=== PATIENT | male | born 1970 | race African-American/Black ===

== ENCOUNTER 2018-04-05 17:09 | Inpatient (IN) ==
[2018-04-05] MEDS ORDERED: ONDANSETRON 4 MG/2 ML VIAL IV STA (17:30)
[2018-04-05] MEDS ORDERED: PANTOPRAZOLE 40 MG VIAL IV STA (17:30)
[2018-04-05] MEDS ORDERED: METOCLOPRAMIDE 10 MG/2 ML VIAL IV STA (17:30)
[2018-04-05] MEDS ORDERED: ORPHENADRINE 60 MG/2 ML VIAL IV STA (17:30)
[2018-04-05 18:20] LABS: Basophils # 0.1 10*3/uL (0.0-0.2); Basophils % 1.5 % (0.0-0.8); Eosinophils # 0.3 10*3/uL (0.0-0.87); Eosinophils % 5.7 % (0.00-10.9); Hematocrit 31.8 VOL% (42.0-52.0); Hemoglobin 10.9 GM/DL (14.0-18.0); Immature Granulocytes % 0.4 %; Immature Granulocytes Absolute 0.02 #; Lymphocytes # 2.1 10*3/uL (1.4-4.0); Lymphocytes % 45.1 % (21.2-54.2); Mean Corpuscular HGB Conc 34.3 GM/DL (32-36); Mean Corpuscular Hemoglobin 32 PG (27-34); Mean Corpuscular Volume 91.9 FL (87-102); Mean Platelet Volume 10.2 FL (9.6-12.0); Monocytes # 0.7 10*3/uL (0.11-0.8); Monocytes % 14.2 % (1.7-12.7); Neutrophils # 1.5 10*3/uL (1.4-7.4); Neutrophils % 33.1 % (38.7-73.9); Platelet Count 135 T/CUMM (130-400); Red Blood Count 3.46 MC/CUMM (3.8-5.5); Red Cell Distribution Width 14.8 % (9.3-17.3); White Blood Count 4.6 T/CUMM (4-12)
[2018-04-05 18:21] LABS: Apearance,Urine CLEAR (Clear); Bilirubin,Urine Negative (Negative); Blood, Urine Negative (Negative); Glucose,Urine (UA) Negative (Negative); Ketones,Urine 20 mg/dL (Negative); Nitrite,Urine Negative (Negative); Protein,Urine Negative; RBC,Urine <1 /HPF (0-4); Urine Color Yellow (Yellow); Urine Specific Gravity 1.003 (1.001-1.035); Urine Urobilinogen < 2.0 EU/DL (0.2-1.0); WBC,Urine 1 /HPF (0-6)
[2018-04-05 18:37] LABS: Alanine Aminotransferase 35 U/L (16-61); Albumin 3.8 G/DL (3.4-5.0); Alkaline Phosphatase 72 U/L (45-117); Amylase 106 U/L (25-115); Aspartate Amino Transferase 80 U/L (0-37); Blood Urea Nitrogen 4 MG/DL (7-18); Calcium 8.8 MG/DL (8.5-10.1); Glucose 78 MG/DL (74-106); Osmolality,Calculated 268.8 MOS/KG (273-304); Potassium 2.6 MMOL/L (3.5-5.1); Sodium 137 MMOL/L (136-145); Total Protein 7.3 G/DL (6.4-8.3); Troponin I < 0.015 NG/ML (0.00-0.045)
[2018-04-05 18:48] LABS: Band Neutrophils 6 % (0-10); Eosinophils 10 % (0-10); Lymphocytes 40 % (20-55); Platelet Estimate Adequate; Segmented Neutrophils 36 % (50-85); Total Cells Counted 100
[2018-04-05 18:49] LABS: Anisocytosis 1+; Macrocytosis Slight; Smudge Cells Few; Target Cells Few
[2018-04-05] MEDS ORDERED: POTASSIUM BICARB EFFERVESCENT 25 MEQ TABLET PO ONE (19:24)
[2018-04-05] MEDS ORDERED: LEVOFLOXACIN INJ 750 MG in PREMIX 1 EACH IV STA (20:28)
[2018-04-05] MEDS ORDERED: ALBUTEROL/IPRATROPIUM 3 ML NEB RESP TX STA (20:28)
[2018-04-05] MEDS ORDERED: ONDANSETRON 4 MG/2 ML VIAL IV PRN (21:18)
[2018-04-05] MEDS ORDERED: MORPHINE 4 MG/1 ML VIAL IV PRN (21:25)
[2018-04-05 22:06] LABS: Risk Ratio 4.02; VLDL CHOLESTEROL 103.8 MG/DL
[2018-04-05] MEDS ORDERED: ALBUTEROL 2.5 MG/3 ML NEB RESP TX PRN (23:07)
[2018-04-05] MEDS: SODIUM CHLORIDE 0.45% 1,000 ML IV SCH (23:44)
[2018-04-05] MEDS: POTASSIUM CHLORIDE RIDER 10 MEQ in PREMIX 1 EACH IV SCH (23:46)
[2018-04-05] MEDS: ENOXAPARIN 40 MG/0.4 ML SYRINGE SUBCUT SCH (23:46)
[2018-04-05 23:50] LABS: Troponin I < 0.015 NG/ML (0.00-0.045)
[2018-04-06] MEDS: POTASSIUM CHLORIDE RIDER 10 MEQ in PREMIX 1 EACH IV SCH ×3 (00:48→04:14)
[2018-04-06 02:11] LABS: Apearance,Urine CLEAR (Clear); Bilirubin,Urine Negative (Negative); Blood, Urine Negative (Negative); Glucose,Urine (UA) Negative (Negative); Ketones,Urine 20 mg/dL (Negative); Mucus,Urine Occasional /LPF (Occasional); Nitrite,Urine Negative (Negative); Protein,Urine Negative; Urine Color Yellow (Yellow); Urine Specific Gravity 1.011 (1.001-1.035); WBC,Urine <1 /HPF (0-6)
[2018-04-06] MEDS ORDERED: POTASSIUM CHLORIDE RIDER 10 MEQ in PREMIX 1 EACH IV SCH (03:00)
[2018-04-06 03:18] LABS: Barbiturates Screen,Urine Negative (Negative); Benzodiazepines Screen,Urine Negative (Negative); Cannabinoid Screen,Urine Negative (Negative); Opiate Screen,Urine Positive (Negative); Phencyclidine Screen,Urine Negative (Negative)
[2018-04-06 05:29] LABS: Basophils # 0.1 10*3/uL (0.0-0.2); Basophils % 1.9 % (0.0-0.8); Eosinophils # 0.4 10*3/uL (0.0-0.87); Eosinophils % 15.6 % (0.00-10.9); Hematocrit 28.6 VOL% (42.0-52.0); Immature Granulocytes % 0.7 %; Immature Granulocytes Absolute 0.02 #; Lymphocytes # 1.4 10*3/uL (1.4-4.0); Lymphocytes % 51.3 % (21.2-54.2); Mean Corpuscular Hemoglobin 32 PG (27-34); Mean Corpuscular Volume 90.5 FL (87-102); Mean Platelet Volume 10.2 FL (9.6-12.0); Monocytes # 0.4 10*3/uL (0.11-0.8); Monocytes % 13.4 % (1.7-12.7); Neutrophils # 0.5 10*3/uL (1.4-7.4); Neutrophils % 17.1 % (38.7-73.9); Platelet Count 123 T/CUMM (130-400); Red Blood Count 3.16 MC/CUMM (3.8-5.5); Red Cell Distribution Width 14.6 % (9.3-17.3); White Blood Count 2.7 T/CUMM (4-12)
[2018-04-06 05:58] LABS: Troponin I < 0.015 NG/ML (0.00-0.045)
[2018-04-06 05:59] LABS: Albumin 3.4 G/DL (3.4-5.0); Bilirubin,Total 1.1 MG/DL (0.2-1.0); Calcium 8.5 MG/DL (8.5-10.1); Osmolality,Calculated 272.5 MOS/KG (273-304); Potassium 3.6 MMOL/L (3.5-5.1); Total Protein 6.5 G/DL (6.4-8.3)
[2018-04-06 07:12] LABS: Eosinophils 15 % (0-10); Lymphocytes 53 % (20-55); Platelet Estimate Decreased; Segmented Neutrophils 20 % (50-85); Total Cells Counted 100
[2018-04-06] MEDS: SODIUM CHLORIDE 0.45% 1,000 ML IV SCH ×3 (07:35→23:14)
[2018-04-06] MEDS: CLOPIDOGREL 75 MG TABLET PO SCH (09:41)
[2018-04-06] MEDS: PANTOPRAZOLE 40 MG TABLET PO SCH (09:41)
[2018-04-06] MEDS: METOPROLOL TARTRATE 25 MG TABLET PO SCH ×2 (09:41→23:04)
[2018-04-06 12:44] LABS: Troponin I < 0.015 NG/ML (0.00-0.045)
[2018-04-06] MEDS: NORVIR 100 MG PO SCH (13:58)
[2018-04-06] MEDS ORDERED: LEVOFLOXACIN INJ 500 MG in PREMIX 1 EACH IV SCH (21:00)
[2018-04-06] MEDS: ENOXAPARIN 40 MG/0.4 ML SYRINGE SUBCUT SCH (23:04)
[2018-04-07 04:54] LABS: Basophils % 1.4 % (0.0-0.8); Eosinophils # 0.4 10*3/uL (0.0-0.87); Eosinophils % 15.3 % (0.00-10.9); Hematocrit 27.8 VOL% (42.0-52.0); Hemoglobin 9.6 GM/DL (14.0-18.0); Immature Granulocytes % 0.7 %; Immature Granulocytes Absolute 0.02 #; Lymphocytes # 1.3 10*3/uL (1.4-4.0); Lymphocytes % 44.4 % (21.2-54.2); Mean Corpuscular HGB Conc 34.5 GM/DL (32-36); Mean Corpuscular Hemoglobin 32 PG (27-34); Mean Corpuscular Volume 91.4 FL (87-102); Mean Platelet Volume 10.6 FL (9.6-12.0); Monocytes # 0.4 10*3/uL (0.11-0.8); Monocytes % 13.5 % (1.7-12.7); Neutrophils # 0.7 10*3/uL (1.4-7.4); Neutrophils % 24.7 % (38.7-73.9); Platelet Count 109 T/CUMM (130-400); Red Blood Count 3.04 MC/CUMM (3.8-5.5); Red Cell Distribution Width 14.6 % (9.3-17.3); White Blood Count 2.9 T/CUMM (4-12)
[2018-04-07 05:40] LABS: Calcium 8.1 MG/DL (8.5-10.1); Osmolality,Calculated 268.8 MOS/KG (273-304); Potassium 2.9 MMOL/L (3.5-5.1)
[2018-04-07 05:54] LABS: Eosinophils 9 % (0-10); Lymphocytes 59 % (20-55); Segmented Neutrophils 25 % (50-85); Total Cells Counted 100
[2018-04-07 05:55] LABS: Atypical Lymphocytes Few; Hypochromasia 1+; Microcytosis Slight; Target Cells Slight
[2018-04-07 05:56] LABS: Platelet Estimate Decreased
[2018-04-07] MEDS ORDERED: SODIUM CHLOR 0.9% KCL 40 MEQ 40 MEQ/1,000 ML BAG IV SCH (07:30)
[2018-04-07] MEDS ORDERED: POTASSIUM CHLORIDE 20 MEQ TABLET PO ONE ×2 (07:30→12:30)
[2018-04-07] MEDS ORDERED: POTASSIUM CHLORIDE INJ 40 MEQ in DEXTROSE 5% LACTATED RINGERS 1,000 ML IV SCH (08:00)
[2018-04-07] MEDS: POTASSIUM CHLORIDE INJ 40 MEQ in SODIUM CHLORIDE 0.45% 1,000 ML IV SCH ×2 (08:45→22:25)
[2018-04-07] MEDS: PANTOPRAZOLE 40 MG TABLET PO SCH (08:50)
[2018-04-07] MEDS: CLOPIDOGREL 75 MG TABLET PO SCH (08:50)
[2018-04-07] MEDS: METOPROLOL TARTRATE 25 MG TABLET PO SCH ×2 (08:50→22:22)
[2018-04-07] MEDS: NORVIR 100 MG PO SCH (08:51)
[2018-04-07] MEDS ORDERED: MAGNESIUM SULF RIDER 2 GM in PREMIX 1 EACH IV PRN (08:55)
[2018-04-07] MEDS ORDERED: MAGNESIUM SULF RIDER 4 GM in PREMIX 1 EACH IV PRN (08:55)
[2018-04-07 17:46] LABS: % CD4 (T Cells) 18 % (32-64); % CD8 (T Cells) 60 % (13-40); 4/8 Ratio 0.3 (>=0.9)
[2018-04-07] MEDS: ENOXAPARIN 40 MG/0.4 ML SYRINGE SUBCUT SCH (22:22)
[2018-04-08 05:04] LABS: Basophils % 0.7 % (0.0-0.8); Eosinophils # 0.5 10*3/uL (0.0-0.87); Eosinophils % 15.9 % (0.00-10.9); Hematocrit 26.7 VOL% (42.0-52.0); Hemoglobin 9.1 GM/DL (14.0-18.0); Immature Granulocytes % 0.7 %; Immature Granulocytes Absolute 0.02 #; Lymphocytes # 1.2 10*3/uL (1.4-4.0); Lymphocytes % 42.4 % (21.2-54.2); Mean Corpuscular HGB Conc 34.1 GM/DL (32-36); Mean Corpuscular Hemoglobin 32 PG (27-34); Mean Corpuscular Volume 92.7 FL (87-102); Mean Platelet Volume 11.1 FL (9.6-12.0); Monocytes # 0.3 10*3/uL (0.11-0.8); Monocytes % 10.2 % (1.7-12.7); Neutrophils # 0.9 10*3/uL (1.4-7.4); Neutrophils % 30.1 % (38.7-73.9); Platelet Count 111 T/CUMM (130-400); Red Blood Count 2.88 MC/CUMM (3.8-5.5); Red Cell Distribution Width 14.7 % (9.3-17.3); White Blood Count 2.8 T/CUMM (4-12)
[2018-04-08 05:32] LABS: Calcium 8.4 MG/DL (8.5-10.1); Osmolality,Calculated 272.5 MOS/KG (273-304); Potassium 3.6 MMOL/L (3.5-5.1)
[2018-04-08 07:38] LABS: Band Neutrophils 1 % (0-10); Eosinophils 18 % (0-10); Lymphocytes 43 % (20-55); Nucleated Red Blood Cells 1 (0-5); Segmented Neutrophils 33 % (50-85); Total Cells Counted 100
[2018-04-08 07:39] LABS: Hypochromasia 1+; Microcytosis 1+; Target Cells Slight
[2018-04-08 07:40] LABS: Platelet Estimate Decreased
[2018-04-08] MEDS: CLOPIDOGREL 75 MG TABLET PO SCH (10:10)
[2018-04-08] MEDS: PANTOPRAZOLE 40 MG TABLET PO SCH (10:10)
[2018-04-08] MEDS: METOPROLOL TARTRATE 25 MG TABLET PO SCH (10:10)
[2018-04-08] MEDS: NORVIR 100 MG PO SCH (10:10)
[2018-04-08 14:24] VITALS: BP 118/92
[2018-04-09 12:01] LABS: TB2 Ag Minus Result 0 IU/mL
== END 2018-04-08 12:45 | disposition home or self-care (01) | DRG 439 ==
LOC: EDUNIT# → EDBD → N.ED 17:09 → N.EDINP 21:18 → SUATTDRO 21:18 → N.2E 22:54
PROVIDERS: ADMIT Internal Medicine; ATTEND Internal Medicine

== ENCOUNTER 2018-05-12 20:42 | Inpatient (IN) ==
[2018-05-12] MEDS ORDERED: SODIUM CHLORIDE 0.9% 1,000 ML IV STA (22:01)
[2018-05-12] MEDS ORDERED: MORPHINE 4 MG/1 ML VIAL IV STA (22:02)
[2018-05-12] MEDS ORDERED: ONDANSETRON 4 MG/2 ML VIAL IV STA (22:02)
[2018-05-12 22:19] LABS: Basophils % 0.1 % (0.0-0.8); Eosinophils % 0.1 % (0.00-10.9); Hematocrit 35.2 VOL% (42.0-52.0); Hemoglobin 11.2 GM/DL (14.0-18.0); Immature Granulocytes % 0.9 %; Immature Granulocytes Absolute 0.09 #; Lymphocytes # 0.6 10*3/uL (1.4-4.0); Lymphocytes % 6.1 % (21.2-54.2); Mean Corpuscular HGB Conc 31.8 GM/DL (32-36); Mean Corpuscular Hemoglobin 31 PG (27-34); Mean Corpuscular Volume 97.2 FL (87-102); Mean Platelet Volume 10.4 FL (9.6-12.0); Monocytes # 0.4 10*3/uL (0.11-0.8); Monocytes % 4.2 % (1.7-12.7); NRBC # 0.03 10*3/uL; Neutrophils # 8.8 10*3/uL (1.4-7.4); Neutrophils % 88.6 % (38.7-73.9); Platelet Count 161 T/CUMM (130-400); Red Blood Count 3.62 MC/CUMM (3.8-5.5); Red Cell Distribution Width 14.8 % (9.3-17.3); White Blood Count 9.9 T/CUMM (4-12)
[2018-05-12 22:27] LABS: Bilirubin,Total 0.8 MG/DL (0.2-1.0); Calcium 7.6 MG/DL (8.5-10.1); Osmolality,Calculated 263.4 MOS/KG (273-304); Potassium 5.1 MMOL/L (3.5-5.1); Total Protein 7.6 G/DL (6.4-8.3)
[2018-05-12 22:38] LABS: Lactic Acid 8.9 MMOL/L (0.4-2.0)
[2018-05-13] MEDS ORDERED: ONDANSETRON 4 MG/2 ML VIAL IV PRN (04:38)
[2018-05-13] MEDS ORDERED: LEVOFLOXACIN INJ 750 MG in PREMIX 1 EACH IV SCH (05:00)
[2018-05-13] MEDS ORDERED: LORazepam 2 MG/1 ML VIAL IV PRN (05:03)
[2018-05-13] MEDS ORDERED: LEVALBUTEROL 1.25 MG/3 ML NEB RESP TX PRN (05:07)
[2018-05-13] MEDS ORDERED: THIAMINE INJ 100 MG, FOLIC ACID INJ 1 MG, MULTIVITAMIN INJ 10 ML in SODIUM CHLORIDE 0.9... IV ONE (05:15)
[2018-05-13] MEDS: AZTREONAM 2,000 MG in SYRINGE 1 EACH IV SCH ×4 (05:25→23:25)
[2018-05-13 07:56] LABS: INR 1.1; PT Patient Result 11.4 SECS; Partial Thromboplastin Time 24.7 SECS (0-40)
[2018-05-13] MEDS ORDERED: VANCOMYCIN INJ 1,000 MG in SODIUM CHLORIDE 0.9% 250 ML IV ONE (07:58)
[2018-05-13 08:02] LABS: Eosinophils % 0.1 % (0.00-10.9); Hemoglobin 9.5 GM/DL (14.0-18.0); Immature Granulocytes % 0.8 %; Immature Granulocytes Absolute 0.06 #; Lymphocytes # 0.5 10*3/uL (1.4-4.0); Lymphocytes % 6.7 % (21.2-54.2); Mean Corpuscular HGB Conc 33.9 GM/DL (32-36); Mean Corpuscular Hemoglobin 31 PG (27-34); Mean Corpuscular Volume 91.2 FL (87-102); Mean Platelet Volume 10.1 FL (9.6-12.0); Monocytes # 0.6 10*3/uL (0.11-0.8); Monocytes % 8.1 % (1.7-12.7); Neutrophils # 6.2 10*3/uL (1.4-7.4); Neutrophils % 84.3 % (38.7-73.9); Platelet Count 120 T/CUMM (130-400); Red Blood Count 3.07 MC/CUMM (3.8-5.5); Red Cell Distribution Width 14.4 % (9.3-17.3); White Blood Count 7.3 T/CUMM (4-12)
[2018-05-13] MEDS: LEVALBUTEROL 1.25 MG/3 ML NEB RESP TX SCH ×3 (08:05→19:45)
[2018-05-13] MEDS: LORazepam 2 MG/1 ML VIAL IV SCH ×5 (08:14→23:51)
[2018-05-13 08:31] LABS: Albumin 3.6 G/DL (3.4-5.0); Bilirubin,Total 0.7 MG/DL (0.2-1.0); Osmolality,Calculated 260.9 MOS/KG (273-304); Potassium 4.3 MMOL/L (3.5-5.1); Total Protein 6.8 G/DL (6.4-8.3)
[2018-05-13] MEDS ORDERED: INFLUENZA VIRUS VACCINE 0.5 ML SYRINGE IM ONE (09:00)
[2018-05-13 11:49] LABS: Lactic Acid 2.2 MMOL/L (0.4-2.0)
[2018-05-13 11:49] LABS: Hepatitis A Ab IgM Quant 0.15 Index; Hepatitis A Ab IgM Result Negative (Negative); Hepatitis B Core IgM Quant < 0.05 Index; Hepatitis B Core IgM Result Negative (Negative); Hepatitis B Surface Ag Quant < 0.10 Index; Hepatitis B Surface Ag Result Negative (Negative); Hepatitis C Virus Ab Result Negative (Negative)
[2018-05-13] MEDS ORDERED: VANCOMYCIN INJ 1,000 MG in SODIUM CHLORIDE 0.9% 250 ML IV SCH (15:30)
[2018-05-13 16:00] LABS: Apearance,Urine CLEAR (Clear); Bilirubin,Urine Negative (Negative); Blood, Urine Small mg/dL (Negative); Glucose,Urine (UA) Negative (Negative); Ketones,Urine 5 mg/dL (Negative); Nitrite,Urine Negative (Negative); Protein,Urine Negative; Urine Color Straw (Yellow); Urine Specific Gravity 1.004 (1.001-1.035); Urine Urobilinogen < 2.0 EU/DL (0.2-1.0); WBC,Urine <1 /HPF (0-6)
[2018-05-13] MEDS: SODIUM CHLORIDE 0.9% 1,000 ML IV SCH (19:05)
[2018-05-14] MEDS: LEVALBUTEROL 1.25 MG/3 ML NEB RESP TX SCH ×3 (01:27→13:54)
[2018-05-14] MEDS: LORazepam 2 MG/1 ML VIAL IV SCH ×4 (03:21→15:15)
[2018-05-14] MEDS: SODIUM CHLORIDE 0.9% 1,000 ML IV SCH ×2 (03:21→15:14)
[2018-05-14] MEDS: AZTREONAM 2,000 MG in SYRINGE 1 EACH IV SCH ×2 (06:30→11:07)
[2018-05-14 08:09] VITALS: BP 114/79
[2018-05-14 08:40] LABS: Basophils % 0.5 % (0.0-0.8); Eosinophils % 0.7 % (0.00-10.9); Hematocrit 27.5 VOL% (42.0-52.0); Hemoglobin 9.3 GM/DL (14.0-18.0); Immature Granulocytes % 0.7 %; Immature Granulocytes Absolute 0.03 #; Lymphocytes # 0.9 10*3/uL (1.4-4.0); Lymphocytes % 22.3 % (21.2-54.2); Mean Corpuscular HGB Conc 33.8 GM/DL (32-36); Mean Corpuscular Hemoglobin 31 PG (27-34); Mean Corpuscular Volume 90.5 FL (87-102); Mean Platelet Volume 10.7 FL (9.6-12.0); Monocytes # 0.5 10*3/uL (0.11-0.8); Monocytes % 11.5 % (1.7-12.7); Neutrophils # 2.7 10*3/uL (1.4-7.4); Neutrophils % 64.3 % (38.7-73.9); Platelet Count 108 T/CUMM (130-400); Red Blood Count 3.04 MC/CUMM (3.8-5.5); Red Cell Distribution Width 14.8 % (9.3-17.3); White Blood Count 4.2 T/CUMM (4-12)
[2018-05-14 09:07] LABS: Albumin 3.1 G/DL (3.4-5.0); Bilirubin,Total 0.7 MG/DL (0.2-1.0); Calcium 8.4 MG/DL (8.5-10.1); Osmolality,Calculated 276.4 MOS/KG (273-304); Potassium 3.3 MMOL/L (3.5-5.1); Risk Ratio 3.15; Total Protein 6.2 G/DL (6.4-8.3); VLDL CHOLESTEROL 43.6 MG/DL
[2018-05-14] MEDS ORDERED: MAGNESIUM SULF RIDER 4 GM in PREMIX 1 EACH IV ONE ×2 (10:41→11:00)
[2018-05-14] MEDS ORDERED: POTASSIUM CHLORIDE 20 MEQ TABLET PO ONE (10:42)
[2018-05-14] MEDS ORDERED: LEVOFLOXACIN INJ 750 MG in PREMIX 1 EACH IV SCH (11:00)
[2018-05-14] MEDS ORDERED: METOPROLOL TARTRATE 25 MG TABLET PO SCH (21:00)
[2018-05-15] MEDS ORDERED: DARUNAVIR ETHANOLATE 800 MG PO SCH ×2 (08:00→09:00)
[2018-05-15] MEDS ORDERED: NON-FORMULARY MEDICATION (Ritonavir [Norvir] 100 MG) PO SCH ×2 (08:00→09:00)
[2018-05-15] MEDS ORDERED: CLOPIDOGREL 75 MG TABLET PO SCH (09:00)
[2018-05-15] MEDS ORDERED: NON-FORMULARY MEDICATION (Dolutegravir Sodium [Tivicay] 50 MG) PO SCH (09:00)
[2018-05-15 20:06] LABS: % CD4 (T Cells) 24 % (32-64); % CD8 (T Cells) 62 % (13-40); 4/8 Ratio 0.4 (>=0.9)
[2018-05-16] MEDS ORDERED: PANTOPRAZOLE 40 MG TABLET PO SCH (09:00)
== END 2018-05-14 15:58 | disposition home or self-care (01) | DRG 433 ==
LOC: N.ED 20:42 → N.EDINP 05-13 03:54 → SUATTDRO 05-13 03:54 → N.5E 05-13 05:14
PROVIDERS: ADMIT Internal Medicine; ATTEND Hospitalist

== ENCOUNTER 2018-07-05 20:31 | Inpatient (IN) ==
[2018-07-05] MEDS ORDERED: ONDANSETRON 4 MG/2 ML VIAL IV STA (21:41)
[2018-07-05] MEDS ORDERED: SODIUM CHLORIDE 0.9% 1,000 ML IV STA (21:41)
[2018-07-05 21:53] LABS: Basophils # 0.1 10*3/uL (0.0-0.2); Basophils % 0.4 % (0.0-0.8); Eosinophils # 0.1 10*3/uL (0.0-0.87); Eosinophils % 0.4 % (0.00-10.9); Hematocrit 40.3 VOL% (42.0-52.0); Hemoglobin 12.1 GM/DL (14.0-18.0); Immature Granulocytes % 1.1 %; Immature Granulocytes Absolute 0.15 #; Lymphocytes # 0.8 10*3/uL (1.4-4.0); Lymphocytes % 5.9 % (21.2-54.2); Mean Corpuscular Hemoglobin 29 PG (27-34); Mean Corpuscular Volume 96.6 FL (87-102); Mean Platelet Volume 10.3 FL (9.6-12.0); Monocytes % 6.8 % (1.7-12.7); NRBC # 0.19 10*3/uL; Neutrophils % 85.4 % (38.7-73.9); Platelet Count 238 T/CUMM (130-400); Red Blood Count 4.17 MC/CUMM (3.8-5.5); Red Cell Distribution Width 16.1 % (9.3-17.3); White Blood Count 14.1 T/CUMM (4-12)
[2018-07-05 22:22] LABS: Albumin 4.2 G/DL (3.4-5.0); Bilirubin,Total 0.5 MG/DL (0.2-1.0); Calcium 8.5 MG/DL (8.5-10.1); Osmolality,Calculated 280.5 MOS/KG (273-304); Potassium 3.7 MMOL/L (3.5-5.1); Total Protein 9.3 G/DL (6.4-8.3)
[2018-07-05 22:34] LABS: Lactic Acid 15.4 MMOL/L (0.4-2.0)
[2018-07-05] MEDS ORDERED: SODIUM CHLORIDE 0.9% 2,000 ML IV STA (22:58)
[2018-07-05] MEDS ORDERED: CEFEPIME 2,000 MG in SODIUM CHLORIDE 0.9% 100 ML IV STA (22:58)
[2018-07-05] MEDS ORDERED: VANCOMYCIN INJ 1,000 MG in SODIUM CHLORIDE 0.9% 250 ML IV STA (22:58)
[2018-07-06 01:44] LABS: Apearance,Urine Slightly Hazy (Clear); Bacteria,Urine Occasional /HPF (Few); Bilirubin,Urine Negative (Negative); Blood, Urine Moderate mg/dL (Negative); Glucose,Urine (UA) 50 mg/dL (Negative); Hyaline Casts,Urine 49 /LPF (0-3); Ketones,Urine 80 mg/dL (Negative); Mucus,Urine Occasional /LPF (Occasional); Nitrite,Urine Negative (Negative); Protein,Urine 100 MG/DL; RBC,Urine 1 /HPF (0-4); Squamous Epithelial Cell,Urine Occasional /HPF (0-10); Urine Color Yellow (Yellow); Urine Specific Gravity 1.013 (1.001-1.035); Urine Urobilinogen < 2.0 EU/DL (0.2-1.0); WBC,Urine 3 /HPF (0-6)
[2018-07-06] MEDS ORDERED: ALBUTEROL 2.5 MG/3 ML NEB RESP TX PRN (01:53)
[2018-07-06] MEDS ORDERED: ONDANSETRON 4 MG/2 ML VIAL IV PRN (01:58)
[2018-07-06] MEDS ORDERED: PROMETHAZINE INJ 25 MG in SODIUM CHLORIDE 0.9% 50 ML IV PRN (02:13)
[2018-07-06] MEDS ORDERED: SODIUM BICARB INJ 50 MEQ in SODIUM CHLORIDE 0.45% 1,000 ML IV SCH (02:30)
[2018-07-06] MEDS ORDERED: LEVOFLOXACIN INJ 500 MG in PREMIX 1 EACH IV ONE (02:30)
[2018-07-06 03:44] LABS: INR 1.1; PT Patient Result 11.9 SECS
[2018-07-06] MEDS: guaiFENesin/DM ER 600-30 MG TABLET PO SCH ×3 (03:54→21:55)
[2018-07-06] MEDS ORDERED: MAGNESIUM SULF RIDER 4 GM in PREMIX 1 EACH IV PRN (03:56)
[2018-07-06] MEDS: MAGNESIUM SULF RIDER 2 GM in PREMIX 1 EACH IV PRN ×2 (04:50→06:23)
[2018-07-06] MEDS: ALBUTEROL 2.5 MG/3 ML NEB RESP TX SCH ×2 (07:15→19:08)
[2018-07-06 07:51] LABS: Barbiturates Screen,Urine Negative (Negative); Benzodiazepines Screen,Urine Negative (Negative); Cannabinoid Screen,Urine Negative (Negative); Opiate Screen,Urine Negative (Negative); Phencyclidine Screen,Urine Negative (Negative)
[2018-07-06] MEDS ORDERED: Ritonavir [Norvir] 100 MG PO SCH (08:00)
[2018-07-06] MEDS ORDERED: Darunavir Ethanolate [Prezista] 800 MG PO SCH (08:00)
[2018-07-06] MEDS: PANTOPRAZOLE 40 MG VIAL IV SCH (08:40)
[2018-07-06] MEDS: METOPROLOL TARTRATE 25 MG TABLET PO SCH ×2 (08:40→21:56)
[2018-07-06] MEDS: ENOXAPARIN 30 MG/0.3 ML SYRINGE SUBCUT SCH (08:40)
[2018-07-06] MEDS: CLOPIDOGREL 75 MG TABLET PO SCH (08:40)
[2018-07-06 08:56] LABS: Basophils % 0.1 % (0.0-0.8); Hematocrit 26.8 VOL% (42.0-52.0); Immature Granulocytes % 0.3 %; Immature Granulocytes Absolute 0.03 #; Lymphocytes # 0.8 10*3/uL (1.4-4.0); Lymphocytes % 9.2 % (21.2-54.2); Mean Corpuscular HGB Conc 31.7 GM/DL (32-36); Mean Corpuscular Hemoglobin 28 PG (27-34); Mean Platelet Volume 10.7 FL (9.6-12.0); Monocytes # 0.6 10*3/uL (0.11-0.8); NRBC # 0.14 10*3/uL; Neutrophils # 7.7 10*3/uL (1.4-7.4); Neutrophils % 84.4 % (38.7-73.9); Platelet Count 141 T/CUMM (130-400); Red Blood Count 3.01 MC/CUMM (3.8-5.5); Red Cell Distribution Width 15.4 % (9.3-17.3); White Blood Count 9.1 T/CUMM (4-12)
[2018-07-06] MEDS ORDERED: Dolutegravir Sodium [Tivicay] 50 MG PO SCH (09:00)
[2018-07-06 09:15] LABS: Calcium 7.1 MG/DL (8.5-10.1); Potassium 3.5 MMOL/L (3.5-5.1)
[2018-07-06 09:19] LABS: Albumin 3.1 G/DL (3.4-5.0); Bilirubin,Total 1.8 MG/DL (0.2-1.0); Calcium 7.2 MG/DL (8.5-10.1); Osmolality,Calculated 274.7 MOS/KG (273-304); Potassium 3.4 MMOL/L (3.5-5.1); Total Protein 6.4 G/DL (6.4-8.3)
[2018-07-06 09:23] LABS: Hemoglobin 8.5 GM/DL (14.0-18.0)
[2018-07-06] MEDS ORDERED: MAGNESIUM SULF RIDER 2 GM in PREMIX 1 EACH IV ONE (09:30)
[2018-07-06] MEDS: SODIUM CHLORIDE 0.9% 1,000 ML IV SCH (10:55)
[2018-07-06 18:37] LABS: CKMB % 4.5 %
[2018-07-06 18:40] LABS: Troponin I 1.71 NG/ML (0.00-0.045)
[2018-07-07] MEDS: SODIUM CHLORIDE 0.9% 1,000 ML IV SCH ×3 (00:23→16:31)
[2018-07-07 04:20] LABS: Basophils % 0.4 % (0.0-0.8); Eosinophils % 0.1 % (0.00-10.9); Hematocrit 25.6 VOL% (42.0-52.0); Hemoglobin 8.3 GM/DL (14.0-18.0); Immature Granulocytes % 0.3 %; Immature Granulocytes Absolute 0.02 #; Lymphocytes % 14.3 % (21.2-54.2); Mean Corpuscular HGB Conc 32.4 GM/DL (32-36); Mean Corpuscular Hemoglobin 28 PG (27-34); Mean Corpuscular Volume 87.7 FL (87-102); Mean Platelet Volume 10.9 FL (9.6-12.0); Monocytes # 0.3 10*3/uL (0.11-0.8); Monocytes % 4.6 % (1.7-12.7); NRBC # 0.02 10*3/uL; Neutrophils # 5.4 10*3/uL (1.4-7.4); Neutrophils % 80.3 % (38.7-73.9); Platelet Count 120 T/CUMM (130-400); Red Blood Count 2.92 MC/CUMM (3.8-5.5); Red Cell Distribution Width 15.2 % (9.3-17.3); White Blood Count 6.8 T/CUMM (4-12)
[2018-07-07] MEDS: LEVOFLOXACIN INJ 250 MG in PREMIX 1 EACH IV SCH (04:36)
[2018-07-07 04:39] LABS: Bilirubin,Total 1.7 MG/DL (0.2-1.0); Calcium 7.9 MG/DL (8.5-10.1); Osmolality,Calculated 277.3 MOS/KG (273-304); Potassium 2.6 MMOL/L (3.5-5.1); Total Protein 6.2 G/DL (6.4-8.3)
[2018-07-07] MEDS: ALBUTEROL 2.5 MG/3 ML NEB RESP TX SCH ×2 (07:43→19:55)
[2018-07-07] MEDS: NON-FORMULARY MEDICATION (Ritonavir [Norvir] 100 MG) PO SCH (07:54)
[2018-07-07] MEDS: DARUNAVIR ETHANOLATE 800 MG PO SCH (07:54)
[2018-07-07] MEDS: CLOPIDOGREL 75 MG TABLET PO SCH (08:05)
[2018-07-07] MEDS: guaiFENesin/DM ER 600-30 MG TABLET PO SCH ×2 (08:05→21:47)
[2018-07-07] MEDS: NON-FORMULARY MEDICATION (Dolutegravir Sodium [Tivicay] 50 MG) PO SCH (08:05)
[2018-07-07] MEDS: METOPROLOL TARTRATE 25 MG TABLET PO SCH ×2 (08:05→21:48)
[2018-07-07] MEDS: ENOXAPARIN 30 MG/0.3 ML SYRINGE SUBCUT SCH (08:06)
[2018-07-07] MEDS: PANTOPRAZOLE 40 MG VIAL IV SCH (08:06)
[2018-07-07] MEDS ORDERED: ONDANSETRON 4 MG/2 ML VIAL IV PRN (08:56)
[2018-07-07] MEDS: POTASSIUM CHLORIDE 20 MEQ TABLET PO SCH ×2 (09:10→21:47)
[2018-07-07] MEDS: PANTOPRAZOLE 40 MG TABLET PO SCH (09:19)
[2018-07-07] MEDS ORDERED: LOPERAMIDE 2 MG CAPSULE PO PRN (18:03)
[2018-07-08] MEDS: SODIUM CHLORIDE 0.9% 1,000 ML IV SCH ×2 (04:42→08:54)
[2018-07-08] MEDS: LEVOFLOXACIN INJ 250 MG in PREMIX 1 EACH IV SCH (04:42)
[2018-07-08 04:58] LABS: Eosinophils # 0.1 10*3/uL (0.0-0.87); Eosinophils % 1.5 % (0.00-10.9); Hemoglobin 8.8 GM/DL (14.0-18.0); Immature Granulocytes % 0.3 %; Immature Granulocytes Absolute 0.01 #; Lymphocytes # 1.5 10*3/uL (1.4-4.0); Lymphocytes % 38.2 % (21.2-54.2); Mean Corpuscular HGB Conc 32.6 GM/DL (32-36); Mean Corpuscular Hemoglobin 29 PG (27-34); Mean Corpuscular Volume 87.7 FL (87-102); Mean Platelet Volume 11.4 FL (9.6-12.0); Monocytes # 0.3 10*3/uL (0.11-0.8); Monocytes % 7.1 % (1.7-12.7); Neutrophils # 2.1 10*3/uL (1.4-7.4); Neutrophils % 51.9 % (38.7-73.9); Platelet Count 116 T/CUMM (130-400); Red Blood Count 3.08 MC/CUMM (3.8-5.5); Red Cell Distribution Width 15.2 % (9.3-17.3)
[2018-07-08 05:24] LABS: Calcium 8.1 MG/DL (8.5-10.1); Osmolality,Calculated 283.7 MOS/KG (273-304); Potassium 2.8 MMOL/L (3.5-5.1)
[2018-07-08 05:29] LABS: Bilirubin,Total 0.9 MG/DL (0.2-1.0); Calcium 8.1 MG/DL (8.5-10.1); Osmolality,Calculated 281.8 MOS/KG (273-304); Potassium 2.8 MMOL/L (3.5-5.1); Total Protein 6.3 G/DL (6.4-8.3)
[2018-07-08] MEDS: ALBUTEROL 2.5 MG/3 ML NEB RESP TX SCH ×2 (07:15→19:24)
[2018-07-08] MEDS: NON-FORMULARY MEDICATION (Dolutegravir Sodium [Tivicay] 50 MG) PO SCH (08:18)
[2018-07-08] MEDS: NON-FORMULARY MEDICATION (Ritonavir [Norvir] 100 MG) PO SCH (08:18)
[2018-07-08] MEDS: DARUNAVIR ETHANOLATE 800 MG PO SCH (08:18)
[2018-07-08] MEDS: guaiFENesin/DM ER 600-30 MG TABLET PO SCH ×2 (08:19→20:27)
[2018-07-08] MEDS: PANTOPRAZOLE 40 MG TABLET PO SCH (08:19)
[2018-07-08] MEDS: CLOPIDOGREL 75 MG TABLET PO SCH (08:19)
[2018-07-08] MEDS: METOPROLOL TARTRATE 25 MG TABLET PO SCH ×2 (08:19→20:27)
[2018-07-08] MEDS: POTASSIUM CHLORIDE 20 MEQ TABLET PO SCH ×4 (08:19→20:28)
[2018-07-08] MEDS: ENOXAPARIN 30 MG/0.3 ML SYRINGE SUBCUT SCH (08:21)
[2018-07-08] MEDS: MAGNESIUM SULF RIDER 2 GM in PREMIX 1 EACH IV PRN (08:49)
[2018-07-08] MEDS ORDERED: MAGNESIUM SULF RIDER 2 GM in PREMIX 1 EACH IV ONE (08:57)
[2018-07-08] MEDS: MULTIVITAMIN (OCUVITE) TABLET PO SCH (11:38)
[2018-07-08] MEDS ORDERED: POTASSIUM CHLORIDE 20 MEQ TABLET PO ONE (15:00)
[2018-07-09 05:13] LABS: Calcium 8.1 MG/DL (8.5-10.1); Osmolality,Calculated 281.8 MOS/KG (273-304); Potassium 3.2 MMOL/L (3.5-5.1)
[2018-07-09 08:08] VITALS: BP 124/87
[2018-07-09] MEDS: guaiFENesin/DM ER 600-30 MG TABLET PO SCH (08:15)
[2018-07-09] MEDS: MULTIVITAMIN (OCUVITE) TABLET PO SCH (08:15)
[2018-07-09] MEDS: PANTOPRAZOLE 40 MG TABLET PO SCH (08:16)
[2018-07-09] MEDS: METOPROLOL TARTRATE 25 MG TABLET PO SCH (08:16)
[2018-07-09] MEDS: NON-FORMULARY MEDICATION (Ritonavir [Norvir] 100 MG) PO SCH (08:17)
[2018-07-09] MEDS: DARUNAVIR ETHANOLATE 800 MG PO SCH (08:17)
[2018-07-09] MEDS: POTASSIUM CHLORIDE 20 MEQ TABLET PO SCH ×2 (08:18→16:00)
[2018-07-09] MEDS: NON-FORMULARY MEDICATION (Dolutegravir Sodium [Tivicay] 50 MG) PO SCH (08:18)
[2018-07-09] MEDS: ENOXAPARIN 30 MG/0.3 ML SYRINGE SUBCUT SCH (08:20)
[2018-07-09] MEDS: ALBUTEROL 2.5 MG/3 ML NEB RESP TX SCH (08:43)
[2018-07-09] MEDS ORDERED: LEVOFLOXACIN 500 MG TABLET PO SCH (09:00)
== END 2018-07-09 18:32 | disposition home or self-care (01) | DRG 683 ==
LOC: N.ED 20:31 → N.EDINP 07-06 01:29 → SUATTDRO 07-06 01:29 → N.ICU 07-06 01:48
PROVIDERS: ADMIT Internal Medicine; ATTEND Family Medicine

== ENCOUNTER 2019-10-05 09:43 | Inpatient (IN) ==
[2019-10-05] MEDS ORDERED: SODIUM CHLORIDE 0.9% 1,000 ML IV STA (10:05)
[2019-10-05] MEDS ORDERED: ACETAMINOPHEN 325 MG TABLET PO ONE (10:05)
[2019-10-05 11:03] LABS: Basophils % 0.2 % (0.0-0.8); Hematocrit 25.1 VOL% (42.0-52.0); Hemoglobin 8.3 GM/DL (14.0-18.0); Immature Granulocytes % 0.8 %; Immature Granulocytes Absolute 0.05 #; Lymphocytes # 0.4 10*3/uL (1.4-4.0); Lymphocytes % 6.8 % (21.2-54.2); Mean Corpuscular HGB Conc 33.1 GM/DL (32-36); Mean Corpuscular Volume 90.6 FL (87-102); Monocytes % 10.3 % (1.7-12.7); Neutrophils % 81.9 % (38.7-73.9); Platelet Count 154 T/CUMM (130-400); Red Blood Count 2.77 MC/CUMM (3.8-5.5); Red Cell Distribution Width 16.7 % (9.3-17.3); White Blood Count 6.5 T/CUMM (4-12)
[2019-10-05 11:13] LABS: PT Patient Result 10.9 SECS (9.6-12.2)
[2019-10-05 11:36] LABS: Alanine Aminotransferase 20 U/L (16-61); Albumin 2.8 G/DL (3.4-5.0); Alkaline Phosphatase 69 U/L (45-117); Aspartate Amino Transferase 110 U/L (0-37); Blood Urea Nitrogen 6 MG/DL (7-18); Calcium 8.7 MG/DL (8.5-10.1); Estimated Glom Filtration Rate 75 ML/MIN; Glucose 118 MG/DL (74-106); Osmolality,Calculated 249.5 MOS/KG (273-304); Total Protein 7.7 G/DL (6.4-8.3); Troponin I < 0.015 NG/ML (0.00-0.045)
[2019-10-05] MEDS ORDERED: POTASSIUM CHLORIDE 20 MEQ TABLET PO STA (11:40)
[2019-10-05] MEDS ORDERED: NICOTINE 21 MG/24 HR PATCH TRANSDERM PRN (12:01)
[2019-10-05] MEDS ORDERED: ALUMINUM/MAGNES/SIMETH MAX STR 30 ML UDCUP PO PRN (12:01)
[2019-10-05] MEDS ORDERED: LACTULOSE 20 GM/30 ML UDCUP PO PRN (12:01)
[2019-10-05] MEDS ORDERED: hydrALAZINE 20 MG/1 ML VIAL IV PRN (12:01)
[2019-10-05] MEDS ORDERED: SODIUM CHLORIDE 0.9% 1,750 ML IV ONE (12:01)
[2019-10-05] MEDS ORDERED: traZODone 50 MG TABLET PO PRN (12:01)
[2019-10-05] MEDS ORDERED: ONDANSETRON 4 MG/2 ML VIAL IV PRN (12:01)
[2019-10-05] MEDS ORDERED: BISACODYL 5 MG TABLET PO PRN (12:01)
[2019-10-05] MEDS ORDERED: SIMETHICONE CHEW 125 MG TABLET PO PRN (12:01)
[2019-10-05] MEDS ORDERED: diphenhydrAMINE CAP 25 MG CAPSULE PO PRN (12:01)
[2019-10-05] MEDS ORDERED: ACETAMINOPHEN 325 MG TABLET PO PRN (12:01)
[2019-10-05] MEDS ORDERED: MAGNESIUM SULF RIDER 4 GM in PREMIX 1 EACH IV STA (12:05)
[2019-10-05] MEDS: SODIUM CHLOR 0.9% KCL 40 MEQ 40 MEQ/1,000 ML BAG IV SCH ×2 (12:13→23:14)
[2019-10-05 12:32] LABS: Apearance,Urine CLOUDY (Clear); Bacteria,Urine Many /HPF (Few); Bilirubin,Urine Negative (Negative); Blood, Urine Moderate mg/dL (Negative); Glucose,Urine (UA) Negative (Negative); Hyaline Casts,Urine 38 /LPF (0-3); Ketones,Urine Negative (Negative); Mucus,Urine Occasional /LPF (Occasional); Nitrite,Urine Positive (Negative); Protein,Urine 100 MG/DL; RBC,Urine 14 /HPF (0-4); Urine Color Amber (Yellow); Urine Specific Gravity 1.012 (1.001-1.035); WBC,Urine 1298 /HPF (0-6)
[2019-10-05] MEDS ORDERED: MAGNESIUM SULF RIDER 4 GM in PREMIX 1 EACH IV PRN (12:39)
[2019-10-05] MEDS ORDERED: MAGNESIUM SULF RIDER 2 GM in PREMIX 1 EACH IV PRN (12:39)
[2019-10-05] MEDS ORDERED: AZTREONAM 1,000 MG VIAL ONE (13:18)
[2019-10-05] MEDS ORDERED: SODIUM CHLORIDE 0.9% 100 ML IV ONE (13:18)
[2019-10-05] MEDS: ALBUTEROL/IPRATROPIUM 3 ML NEB RESP TX SCH ×2 (13:20→19:12)
[2019-10-05] MEDS: AZTREONAM 2,000 MG in SODIUM CHLORIDE 0.9% 100 ML IV SCH ×2 (13:30→19:31)
[2019-10-05] MEDS: LEVOFLOXACIN INJ 750 MG in PREMIX 1 EACH IV SCH (13:30)
[2019-10-05 14:19] LABS: Hepatitis B Core IgM Quant 0.12 Index; Hepatitis B Surface Ag Quant < 0.10 Index; Hepatitis B Surface Ag Result Negative (Negative); Hepatitis C Virus Ab Quant < 0.02 Index; Hepatitis C Virus Ab Result Negative (Negative)
[2019-10-05] MEDS: chlordiazePOXIDE 25 MG CAPSULE PO SCH ×2 (16:21→21:47)
[2019-10-05] MEDS ORDERED: INFLUENZA VIRUS VACCINE 0.5 ML SYRINGE IM ONE (16:38)
[2019-10-05 19:02] LABS: Calcium 7.4 MG/DL (8.5-10.1); Osmolality,Calculated 262.5 MOS/KG (273-304)
[2019-10-05] MEDS ORDERED: ENOXAPARIN 30 MG/0.3 ML SYRINGE SUBCUT SCH (21:00)
[2019-10-05] MEDS: DOCUSATE SODIUM 100 MG CAPSULE PO PRN ×2 (21:47→21:53)
[2019-10-05] MEDS: CROFELEMER 125 MG PO SCH (21:48)
[2019-10-05] MEDS: guaiFENesin/DM ER 600-30 MG TABLET PO PRN (21:48)
[2019-10-06] MEDS: POTASSIUM CHLORIDE RIDER 10 MEQ in PREMIX 1 EACH IV PRN ×2 (00:11→05:46)
[2019-10-06] MEDS: ALBUTEROL/IPRATROPIUM 3 ML NEB RESP TX SCH ×4 (00:38→19:58)
[2019-10-06] MEDS: AZTREONAM 2,000 MG in SODIUM CHLORIDE 0.9% 100 ML IV SCH ×4 (01:59→18:39)
[2019-10-06] MEDS: chlordiazePOXIDE 25 MG CAPSULE PO SCH ×3 (06:36→22:02)
[2019-10-06] MEDS ORDERED: POTASSIUM CHLORIDE 20 MEQ TABLET PO ONE (07:11)
[2019-10-06 07:48] LABS: Basophils % 0.2 % (0.0-0.8); Eosinophils % 0.2 % (0.00-10.9); Hematocrit 22.6 VOL% (42.0-52.0); Hemoglobin 7.2 GM/DL (14.0-18.0); Immature Granulocytes Absolute 0.06 #; Lymphocytes # 0.7 10*3/uL (1.4-4.0); Lymphocytes % 12.2 % (21.2-54.2); Mean Corpuscular HGB Conc 31.9 GM/DL (32-36); Mean Corpuscular Volume 93.8 FL (87-102); Mean Platelet Volume 10.8 FL (9.6-12.0); Monocytes % 12.9 % (1.7-12.7); Neutrophils % 73.5 % (38.7-73.9); Platelet Count 154 T/CUMM (130-400); Red Blood Count 2.41 MC/CUMM (3.8-5.5); Red Cell Distribution Width 17.2 % (9.3-17.3)
[2019-10-06] MEDS ORDERED: SODIUM CHLORIDE 0.9% 1,000 ML IV PRN (07:52)
[2019-10-06 08:19] LABS: Albumin 2.5 G/DL (3.4-5.0); Calcium 8.1 MG/DL (8.5-10.1); Osmolality,Calculated 265.2 MOS/KG (273-304)
[2019-10-06 08:20] LABS: % Iron Saturation 7.9 % (18-50); Risk Ratio 9.33; VLDL CHOLESTEROL 49.6 MG/DL
[2019-10-06 08:37] LABS: Folate 11.6 NG/ML (5.4-24.0)
[2019-10-06] MEDS: SODIUM CHLOR 0.9% KCL 40 MEQ 40 MEQ/1,000 ML BAG IV SCH ×2 (09:32→17:13)
[2019-10-06] MEDS: NON-FORMULARY MEDICATION (Dolutegravir [Tivicay] 50 MG) PO SCH (09:33)
[2019-10-06] MEDS: NON-FORMULARY MEDICATION (Ritonavir [Norvir] 100 MG) PO SCH (09:33)
[2019-10-06] MEDS: DARUNAVIR ETHANOLATE 800 MG PO SCH (09:34)
[2019-10-06] MEDS: CROFELEMER 125 MG PO SCH ×2 (09:34→22:00)
[2019-10-06] MEDS: POTASSIUM CHLORIDE 20 MEQ TABLET PO SCH ×2 (09:35→22:02)
[2019-10-06] MEDS: THIAMINE 100 MG TABLET PO SCH (09:35)
[2019-10-06] MEDS: PANTOPRAZOLE 40 MG TABLET PO SCH (09:35)
[2019-10-06] MEDS: CLOPIDOGREL 75 MG TABLET PO SCH (09:35)
[2019-10-06] MEDS: METOPROLOL SUCCINATE XL 50 MG TABLET PO SCH (09:35)
[2019-10-06] MEDS: MULTIVITAMIN (CENTRUM) TABLET PO SCH (09:35)
[2019-10-06] MEDS: FOLIC ACID 1 MG TABLET PO SCH (09:35)
[2019-10-06] MEDS: LEVOFLOXACIN INJ 750 MG in PREMIX 1 EACH IV SCH (14:42)
[2019-10-06] MEDS: guaiFENesin/DM ER 600-30 MG TABLET PO PRN (22:01)
[2019-10-06] MEDS: OMEGA 3 ACID ETHYL ESTERS 1 GM CAPSULE PO SCH (22:01)
[2019-10-06] MEDS: ENOXAPARIN 40 MG/0.4 ML SYRINGE SUBCUT SCH (22:02)
[2019-10-06] MEDS: FERROUS SULFATE 325 MG TABLET PO SCH (22:02)
[2019-10-07] MEDS: ALBUTEROL/IPRATROPIUM 3 ML NEB RESP TX SCH ×4 (01:00→19:29)
[2019-10-07] MEDS: AZTREONAM 2,000 MG in SODIUM CHLORIDE 0.9% 100 ML IV SCH ×2 (04:17→11:00)
[2019-10-07] MEDS: chlordiazePOXIDE 25 MG CAPSULE PO SCH ×3 (05:49→21:19)
[2019-10-07 06:20] LABS: Basophils % 0.4 % (0.0-0.8); Eosinophils # 0.1 10*3/uL (0.0-0.87); Eosinophils % 0.9 % (0.00-10.9); Hematocrit 28.5 VOL% (42.0-52.0); Hemoglobin 9.6 GM/DL (14.0-18.0); Immature Granulocytes Absolute 0.11 #; Lymphocytes # 0.9 10*3/uL (1.4-4.0); Lymphocytes % 16.1 % (21.2-54.2); Mean Corpuscular HGB Conc 33.7 GM/DL (32-36); Mean Corpuscular Volume 88.5 FL (87-102); Mean Platelet Volume 10.9 FL (9.6-12.0); Monocytes % 17.9 % (1.7-12.7); Neutrophils % 62.7 % (38.7-73.9); Platelet Count 142 T/CUMM (130-400); Red Blood Count 3.22 MC/CUMM (3.8-5.5); Red Cell Distribution Width 17.4 % (9.3-17.3); White Blood Count 5.5 T/CUMM (4-12)
[2019-10-07 06:33] LABS: Albumin 2.4 G/DL (3.4-5.0); Bilirubin,Total 1.3 MG/DL (0.2-1.0); Calcium 8.6 MG/DL (8.5-10.1); Osmolality,Calculated 267.1 MOS/KG (273-304)
[2019-10-07 06:49] LABS: Band Neutrophils 3 % (0-10); Eosinophils 2 % (0-10); Hypochromasia 1+; Lymphocytes 12 % (20-55); Segmented Neutrophils 69 % (50-85); Target Cells Few; Total Cells Counted 100
[2019-10-07 06:50] LABS: Microcytosis 1+; Platelet Estimate Adequate
[2019-10-07] MEDS: DARUNAVIR ETHANOLATE 800 MG PO SCH (09:02)
[2019-10-07] MEDS: NON-FORMULARY MEDICATION (Ritonavir [Norvir] 100 MG) PO SCH (09:02)
[2019-10-07] MEDS: POTASSIUM CHLORIDE 20 MEQ TABLET PO SCH ×3 (09:03→20:34)
[2019-10-07] MEDS: NON-FORMULARY MEDICATION (Dolutegravir [Tivicay] 50 MG) PO SCH (09:03)
[2019-10-07] MEDS: CROFELEMER 125 MG PO SCH ×2 (09:03→20:34)
[2019-10-07] MEDS: METOPROLOL SUCCINATE XL 50 MG TABLET PO SCH (09:03)
[2019-10-07] MEDS: COENZYME Q10 100 MG CAPSULE PO SCH (09:03)
[2019-10-07] MEDS: EZETIMIBE 10 MG TABLET PO SCH (09:03)
[2019-10-07] MEDS: FERROUS SULFATE 325 MG TABLET PO SCH ×2 (09:03→20:35)
[2019-10-07] MEDS: PANTOPRAZOLE 40 MG TABLET PO SCH (09:03)
[2019-10-07] MEDS: MULTIVITAMIN (CENTRUM) TABLET PO SCH (09:03)
[2019-10-07] MEDS: THIAMINE 100 MG TABLET PO SCH (09:03)
[2019-10-07] MEDS: CLOPIDOGREL 75 MG TABLET PO SCH (09:03)
[2019-10-07] MEDS: FOLIC ACID 1 MG TABLET PO SCH (09:03)
[2019-10-07] MEDS: SODIUM CHLOR 0.9% KCL 40 MEQ 40 MEQ/1,000 ML BAG IV SCH (11:00)
[2019-10-07] MEDS: LEVOFLOXACIN INJ 750 MG in PREMIX 1 EACH IV SCH (11:52)
[2019-10-07] MEDS ORDERED: POTASSIUM CHLORIDE 20 MEQ TABLET PO ONE (12:17)
[2019-10-07] MEDS ORDERED: MAGNESIUM SULF RIDER 4 GM in PREMIX 1 EACH IV ONE (12:18)
[2019-10-07] MEDS: LORazepam 2 MG/1 ML VIAL IV PRN ×2 (12:51→20:52)
[2019-10-07] MEDS: OMEGA 3 ACID ETHYL ESTERS 1 GM CAPSULE PO SCH (20:34)
[2019-10-07] MEDS: ENOXAPARIN 40 MG/0.4 ML SYRINGE SUBCUT SCH (20:35)
[2019-10-08] MEDS: ALBUTEROL/IPRATROPIUM 3 ML NEB RESP TX SCH ×4 (00:12→19:17)
[2019-10-08] MEDS: chlordiazePOXIDE 25 MG CAPSULE PO SCH ×3 (05:08→21:13)
[2019-10-08 05:46] LABS: Basophils % 0.5 % (0.0-0.8); Eosinophils # 0.1 10*3/uL (0.0-0.87); Eosinophils % 2.1 % (0.00-10.9); Hematocrit 30.6 VOL% (42.0-52.0); Immature Granulocytes % 1.9 %; Immature Granulocytes Absolute 0.07 #; Lymphocytes # 0.8 10*3/uL (1.4-4.0); Lymphocytes % 20.5 % (21.2-54.2); Mean Corpuscular HGB Conc 32.7 GM/DL (32-36); Mean Corpuscular Volume 89.5 FL (87-102); Mean Platelet Volume 10.3 FL (9.6-12.0); Platelet Count 208 T/CUMM (130-400); Red Blood Count 3.42 MC/CUMM (3.8-5.5); Red Cell Distribution Width 17.6 % (9.3-17.3); White Blood Count 3.8 T/CUMM (4-12)
[2019-10-08 06:00] LABS: Calcium 9.1 MG/DL (8.5-10.1); Osmolality,Calculated 271.7 MOS/KG (273-304)
[2019-10-08 06:03] LABS: Albumin 2.3 G/DL (3.4-5.0); Bilirubin,Total 1.6 MG/DL (0.2-1.0); Calcium 9.3 MG/DL (8.5-10.1); Osmolality,Calculated 273.5 MOS/KG (273-304); Total Protein 7.1 G/DL (6.4-8.3)
[2019-10-08 06:30] LABS: Band Neutrophils 3 % (0-10); Eosinophils 2 % (0-10); Lymphocytes 21 % (20-55); Metamyelocytes 1 %; Platelet Estimate Normal; Segmented Neutrophils 58 % (50-85); Total Cells Counted 100
[2019-10-08 06:31] LABS: Anisocytosis 1+; Macrocytosis 1+; Polychromasia Few; Target Cells 2+
[2019-10-08] MEDS: NON-FORMULARY MEDICATION (Dolutegravir [Tivicay] 50 MG) PO SCH (10:03)
[2019-10-08] MEDS: DARUNAVIR ETHANOLATE 800 MG PO SCH (10:03)
[2019-10-08] MEDS: EZETIMIBE 10 MG TABLET PO SCH (10:04)
[2019-10-08] MEDS: NON-FORMULARY MEDICATION (Ritonavir [Norvir] 100 MG) PO SCH (10:04)
[2019-10-08] MEDS: THIAMINE 100 MG TABLET PO SCH (10:04)
[2019-10-08] MEDS: CLOPIDOGREL 75 MG TABLET PO SCH (10:04)
[2019-10-08] MEDS: CROFELEMER 125 MG PO SCH ×2 (10:04→20:23)
[2019-10-08] MEDS: METOPROLOL SUCCINATE XL 50 MG TABLET PO SCH (10:04)
[2019-10-08] MEDS: PANTOPRAZOLE 40 MG TABLET PO SCH (10:04)
[2019-10-08] MEDS: POTASSIUM CHLORIDE 20 MEQ TABLET PO SCH ×3 (10:04→20:24)
[2019-10-08] MEDS: FOLIC ACID 1 MG TABLET PO SCH (10:04)
[2019-10-08] MEDS: FERROUS SULFATE 325 MG TABLET PO SCH ×2 (10:04→20:23)
[2019-10-08] MEDS: MULTIVITAMIN (CENTRUM) TABLET PO SCH (10:05)
[2019-10-08] MEDS: COENZYME Q10 100 MG CAPSULE PO SCH (10:05)
[2019-10-08] MEDS: LEVOFLOXACIN INJ 750 MG in PREMIX 1 EACH IV SCH (12:30)
[2019-10-08 16:35] LABS: Barbiturates Screen,Urine Negative (Negative); Benzodiazepines Screen,Urine Positive (Negative); Cannabinoid Screen,Urine Negative (Negative); Opiate Screen,Urine Positive (Negative); Phencyclidine Screen,Urine Negative (Negative)
[2019-10-08] MEDS: OMEGA 3 ACID ETHYL ESTERS 1 GM CAPSULE PO SCH (20:23)
[2019-10-08] MEDS: ENOXAPARIN 40 MG/0.4 ML SYRINGE SUBCUT SCH (20:24)
[2019-10-09] MEDS: ALBUTEROL/IPRATROPIUM 3 ML NEB RESP TX SCH ×3 (01:00→13:00)
[2019-10-09] MEDS: chlordiazePOXIDE 25 MG CAPSULE PO SCH ×2 (05:18→17:05)
[2019-10-09 07:24] LABS: Basophils % 0.4 % (0.0-0.8); Eosinophils # 0.1 10*3/uL (0.0-0.87); Eosinophils % 1.9 % (0.00-10.9); Hematocrit 29.4 VOL% (42.0-52.0); Hemoglobin 9.6 GM/DL (14.0-18.0); Immature Granulocytes % 3.7 %; Immature Granulocytes Absolute 0.17 #; Lymphocytes # 1.1 10*3/uL (1.4-4.0); Lymphocytes % 24.5 % (21.2-54.2); Mean Corpuscular HGB Conc 32.7 GM/DL (32-36); Mean Corpuscular Volume 91.3 FL (87-102); Mean Platelet Volume 10.5 FL (9.6-12.0); Monocytes % 18.5 % (1.7-12.7); Platelet Count 301 T/CUMM (130-400); Red Blood Count 3.22 MC/CUMM (3.8-5.5); Red Cell Distribution Width 17.9 % (9.3-17.3); White Blood Count 4.7 T/CUMM (4-12)
[2019-10-09 07:45] LABS: Eosinophils 2 % (0-10); Hypochromasia 1+; Lymphocytes 27 % (20-55); Microcytosis Slight; Platelet Estimate Adequate; Segmented Neutrophils 51 % (50-85); Total Cells Counted 100
[2019-10-09 07:46] LABS: Albumin 2.3 G/DL (3.4-5.0); Bilirubin,Total 0.7 MG/DL (0.2-1.0); Calcium 9.6 MG/DL (8.5-10.1); Osmolality,Calculated 263.4 MOS/KG (273-304); Total Protein 6.8 G/DL (6.4-8.3)
[2019-10-09] MEDS: FOLIC ACID 1 MG TABLET PO SCH (09:53)
[2019-10-09] MEDS: DARUNAVIR ETHANOLATE 800 MG PO SCH (09:53)
[2019-10-09] MEDS: POTASSIUM CHLORIDE 20 MEQ TABLET PO SCH ×2 (09:53)
[2019-10-09] MEDS: METOPROLOL SUCCINATE XL 50 MG TABLET PO SCH (09:54)
[2019-10-09] MEDS: CLOPIDOGREL 75 MG TABLET PO SCH (09:54)
[2019-10-09] MEDS: FERROUS SULFATE 325 MG TABLET PO SCH (09:54)
[2019-10-09] MEDS: COENZYME Q10 100 MG CAPSULE PO SCH (09:54)
[2019-10-09] MEDS: EZETIMIBE 10 MG TABLET PO SCH (09:54)
[2019-10-09] MEDS: THIAMINE 100 MG TABLET PO SCH (09:54)
[2019-10-09] MEDS: MULTIVITAMIN (CENTRUM) TABLET PO SCH (09:54)
[2019-10-09] MEDS: PANTOPRAZOLE 40 MG TABLET PO SCH (09:54)
[2019-10-09] MEDS: NON-FORMULARY MEDICATION (Ritonavir [Norvir] 100 MG) PO SCH (09:55)
[2019-10-09] MEDS: CROFELEMER 125 MG PO SCH (09:55)
[2019-10-09] MEDS: NON-FORMULARY MEDICATION (Dolutegravir [Tivicay] 50 MG) PO SCH (09:55)
[2019-10-09] MEDS: LORazepam 2 MG/1 ML VIAL IV PRN (10:01)
[2019-10-09] MEDS ORDERED: MAGNESIUM SULF RIDER 4 GM in PREMIX 1 EACH IV ONE (11:25)
[2019-10-09] MEDS: LEVOFLOXACIN INJ 750 MG in PREMIX 1 EACH IV SCH (16:59)
[2019-10-09 17:09] VITALS: BP 90/67
== END 2019-10-09 19:09 | disposition home or self-care (01) | DRG 872 ==
LOC: N.ED 09:43 → N.EDINP 12:45 → N.5E 14:05
PROVIDERS: ADMIT Internal Medicine; ATTEND Internal Medicine

== ENCOUNTER 2019-12-30 05:17 | Inpatient (IN) ==
[2019-12-30 05:54] LABS: Basophils % 0.2 % (0.0-0.8); Eosinophils % 0.2 % (0.00-10.9); Hematocrit 35.5 VOL% (42.0-52.0); Immature Granulocytes % 0.5 %; Immature Granulocytes Absolute 0.03 #; Lymphocytes # 0.9 10*3/uL (1.4-4.0); Lymphocytes % 13.8 % (21.2-54.2); Mean Corpuscular HGB Conc 33.8 GM/DL (32-36); Mean Platelet Volume 9.7 FL (9.6-12.0); Monocytes % 2.1 % (1.7-12.7); NRBC # 0.03 10*3/uL; Neutrophils % 83.2 % (38.7-73.9); Platelet Count 190 T/CUMM (130-400); Red Cell Distribution Width 14.1 % (9.3-17.3); White Blood Count 6.7 T/CUMM (4-12)
[2019-12-30] MEDS ORDERED: ALUM/MAG/SIMETH/LIDO VISC 1:1 30 ML BOTTLE PO STA (06:16)
[2019-12-30] MEDS ORDERED: ASPIRIN 325 MG TABLET PO STA (06:18)
[2019-12-30] MEDS ORDERED: ENOXAPARIN 60 MG/0.6 ML SYRINGE SUBCUT STA (06:18)
[2019-12-30] MEDS ORDERED: METOPROLOL TARTRATE 5 MG/5 ML VIAL IV STA (06:24)
[2019-12-30 06:41] LABS: Albumin 3.6 G/DL (3.4-5.0); Bilirubin,Total 2.2 MG/DL (0.2-1.0); Osmolality,Calculated 249.9 MOS/KG (273-304); Total Protein 7.7 G/DL (6.4-8.3)
[2019-12-30 07:51] LABS: INR 1.1; PT Patient Result 11.4 SECS (9.8-11.9)
[2019-12-30 08:36] LABS: Hepatitis B Core IgM Quant 0.13 Index; Hepatitis B Surface Ag Quant 0.41 Index; Hepatitis B Surface Ag Result Negative (Negative); Hepatitis C Virus Ab Quant 0.07 Index; Hepatitis C Virus Ab Result Negative (Negative)
[2019-12-30] MEDS ORDERED: ONDANSETRON 4 MG/2 ML VIAL IV PRN (09:43)
[2019-12-30] MEDS ORDERED: ACETAMINOPHEN 325 MG TABLET PO PRN (09:43)
[2019-12-30] MEDS ORDERED: LACTATED RINGERS 1,000 ML IV SCH (10:00)
[2019-12-30] MEDS ORDERED: GLUCAGON 1 MG VIAL IM PRN (10:52)
[2019-12-30] MEDS ORDERED: MORPHINE 4 MG/1 ML VIAL IV PRN (10:52)
[2019-12-30] MEDS ORDERED: NICOTINE 21 MG/24 HR PATCH TRANSDERM PRN (10:52)
[2019-12-30] MEDS ORDERED: ALBUTEROL/IPRATROPIUM 3 ML NEB RESP TX PRN (10:52)
[2019-12-30] MEDS ORDERED: LACTULOSE 20 GM/30 ML UDCUP PO PRN (10:52)
[2019-12-30] MEDS ORDERED: DEXTROSE 10% 250 ML BAG IV PRN (10:52)
[2019-12-30] MEDS ORDERED: LORazepam 2 MG/1 ML VIAL IV PRN (10:54)
[2019-12-30] MEDS ORDERED: SODIUM CHLORIDE 0.9% 1,000 ML IV SCH (11:00)
[2019-12-30 11:52] LABS: Apearance,Urine CLEAR (Clear); Bilirubin,Urine Negative (Negative); Blood, Urine Small mg/dL (Negative); Glucose,Urine (UA) 50 mg/dL (Negative); Ketones,Urine Negative (Negative); Nitrite,Urine Negative (Negative); Protein,Urine 30 MG/DL; RBC,Urine <1 /HPF (0-4); Urine Color Yellow (Yellow); Urine Specific Gravity 1.015 (1.001-1.035); Urine Urobilinogen < 2.0 EU/DL (0.2-1.0)
[2019-12-30 11:58] LABS: Barbiturates Screen,Urine Negative (Negative); Benzodiazepines Screen,Urine Negative (Negative); Cannabinoid Screen,Urine Negative (Negative); Opiate Screen,Urine Negative (Negative); Phencyclidine Screen,Urine Negative (Negative)
[2019-12-30] MEDS: THIAMINE INJ 100 MG, FOLIC ACID INJ 1 MG, MULTIVITAMIN INJ 10 ML in SODIUM CHLORIDE 0.9... IV SCH (13:05)
[2019-12-30] MEDS ORDERED: OMEGA 3 ACID ETHYL ESTERS 1 GM CAPSULE PO SCH (21:00)
[2019-12-30] MEDS: PANTOPRAZOLE 40 MG TABLET PO SCH (21:14)
[2019-12-30] MEDS: FERROUS SULFATE 325 MG TABLET PO SCH (21:14)
[2019-12-31 05:21] LABS: Basophils % 0.7 % (0.0-0.8); Eosinophils % 0.7 % (0.00-10.9); Hematocrit 29.8 VOL% (42.0-52.0); Hemoglobin 10.4 GM/DL (14.0-18.0); Immature Granulocytes % 0.5 %; Immature Granulocytes Absolute 0.02 #; Lymphocytes % 24.5 % (21.2-54.2); Mean Corpuscular HGB Conc 34.9 GM/DL (32-36); Mean Corpuscular Volume 87.9 FL (87-102); Mean Platelet Volume 10.3 FL (9.6-12.0); Monocytes % 3.4 % (1.7-12.7); NRBC # 0.05 10*3/uL; Neutrophils % 70.2 % (38.7-73.9); Platelet Count 152 T/CUMM (130-400); Red Blood Count 3.39 MC/CUMM (3.8-5.5); Red Cell Distribution Width 13.8 % (9.3-17.3); White Blood Count 4.2 T/CUMM (4-12)
[2019-12-31] MEDS ORDERED: ENOXAPARIN 40 MG/0.4 ML SYRINGE SUBCUT SCH (06:00)
[2019-12-31 06:37] LABS: Albumin 3.2 G/DL (3.4-5.0); Bilirubin,Direct 2.24 MG/DL (0.0-0.20); Bilirubin,Total 3.2 MG/DL (0.2-1.0); Total Protein 6.2 G/DL (6.4-8.3)
[2019-12-31 07:38] LABS: Albumin 3.2 G/DL (3.4-5.0); Bilirubin,Total 3.2 MG/DL (0.2-1.0); Calcium 8.4 MG/DL (8.5-10.1); Osmolality,Calculated 262.4 MOS/KG (273-304); Risk Ratio 5.8; Total Protein 6.2 G/DL (6.4-8.3); VLDL CHOLESTEROL 76.6 MG/DL
[2019-12-31] MEDS ORDERED: LACTATED RINGERS 1,000 ML IV SCH (08:00)
[2019-12-31] MEDS ORDERED: propofoL 200 MG/20 ML VIAL IV ONE (09:00)
[2019-12-31] MEDS ORDERED: PHENYLEPHRINE 1 MG/10 ML SYRINGE IV ONE (09:00)
[2019-12-31] MEDS ORDERED: METOPROLOL SUCCINATE XL 50 MG TABLET PO SCH (09:00)
[2019-12-31] MEDS ORDERED: CLOPIDOGREL 75 MG TABLET PO SCH (09:00)
[2019-12-31] MEDS ORDERED: PANTOPRAZOLE 40 MG TABLET PO SCH (09:00)
[2019-12-31] MEDS ORDERED: LIDOCAINE 2% 5 ML VIAL ONE (09:00)
[2019-12-31] MEDS: FERROUS SULFATE 325 MG TABLET PO SCH (10:59)
[2019-12-31] MEDS: PANTOPRAZOLE 40 MG TABLET PO SCH (11:04)
[2019-12-31 11:50] VITALS: BP 118/85
[2019-12-31] MEDS: THIAMINE INJ 100 MG, FOLIC ACID INJ 1 MG, MULTIVITAMIN INJ 10 ML in SODIUM CHLORIDE 0.9... IV SCH (13:17)
== END 2019-12-31 18:29 | disposition home or self-care (01) | DRG 445 ==
LOC: N.ED 05:17 → SUATTDRO 10:07 → N.EDINP 10:07 → N.3E 12:45
PROVIDERS: ADMIT Hospitalist; ATTEND Internal Medicine

== ENCOUNTER 2020-02-13 16:44 | Inpatient (IN) ==
[2020-02-13] MEDS ORDERED: PANTOPRAZOLE 40 MG VIAL IV STA (17:24)
[2020-02-13] MEDS ORDERED: ONDANSETRON 4 MG/2 ML VIAL IV STA (17:24)
[2020-02-13] MEDS ORDERED: SODIUM CHLORIDE 0.9% 1,000 ML IV STA ×2 (17:24→19:28)
[2020-02-13] MEDS ORDERED: metroNIDAZOLE INJ 500 MG in PREMIX 1 EACH IV STA (17:24)
[2020-02-13] MEDS ORDERED: METOCLOPRAMIDE 10 MG/2 ML VIAL IV STA (17:24)
[2020-02-13] MEDS ORDERED: CIPROFLOXACIN INJ 400 MG in PREMIX 1 EACH IV STA (17:24)
[2020-02-13] MEDS ORDERED: metroNIDAZOLE 500 MG/100 ML PREMIX IV ONE (17:41)
[2020-02-13 18:10] LABS: Basophils % 0.2 % (0.0-0.8); Eosinophils # 0.1 10*3/uL (0.0-0.87); Eosinophils % 0.4 % (0.00-10.9); Hematocrit 41.7 VOL% (42.0-52.0); Hemoglobin 12.7 GM/DL (14.0-18.0); Immature Granulocytes % 0.6 %; Immature Granulocytes Absolute 0.08 #; Lymphocytes # 0.5 10*3/uL (1.4-4.0); Lymphocytes % 3.8 % (21.2-54.2); Mean Corpuscular HGB Conc 30.5 GM/DL (32-36); Mean Corpuscular Volume 101.5 FL (87-102); NRBC # 0.05 10*3/uL; Platelet Count 215 T/CUMM (130-400); Red Blood Count 4.11 MC/CUMM (3.8-5.5); Red Cell Distribution Width 15.9 % (9.3-17.3); White Blood Count 13.8 T/CUMM (4-12)
[2020-02-13 18:24] LABS: PT Patient Result 10.9 SECS (9.8-11.9); Partial Thromboplastin Time 25.4 SECS (23.9-33.8)
[2020-02-13 19:41] LABS: Alanine Aminotransferase 1287 U/L (16-61); Albumin 4.5 G/DL (3.4-5.0); Alkaline Phosphatase 220 U/L (45-117); Amylase 31 U/L (25-115); Blood Urea Nitrogen 19 MG/DL (7-18); Calcium 9.3 MG/DL (8.5-10.1); Estimated Glom Filtration Rate 51 ML/MIN; Glucose 233 MG/DL (74-106); Osmolality,Calculated 268.8 MOS/KG (273-304); Total Protein 8.5 G/DL (6.4-8.3); Troponin I < 0.015 NG/ML (0.00-0.045)
[2020-02-13 19:54] LABS: Aspartate Amino Transferase 8777 U/L (0-37)
[2020-02-13 20:14] LABS: Lymphocytes 2 % (20-55); Segmented Neutrophils 88 % (50-85); Total Cells Counted 100
[2020-02-13 20:15] LABS: Macrocytosis 1+; Polychromasia Few
[2020-02-13 20:16] LABS: Hypochromasia Slight; Platelet Estimate Adequate
[2020-02-13] MEDS ORDERED: GLUCAGON 1 MG VIAL IM PRN (20:51)
[2020-02-13] MEDS ORDERED: DEXTROSE 50% 25 GM/50 ML VIAL IV PRN (20:51)
[2020-02-13] MEDS ORDERED: ONDANSETRON 4 MG/2 ML VIAL IV PRN (20:51)
[2020-02-13 21:08] LABS: Apearance,Urine CLOUDY (Clear); Bacteria,Urine Occasional /HPF (Few); Bilirubin,Urine Negative (Negative); Blood, Urine Moderate mg/dL (Negative); Glucose,Urine (UA) >=500 mg/dL (Negative); Ketones,Urine 80 mg/dL (Negative); Mucus,Urine Occasional /LPF (Occasional); Nitrite,Urine Negative (Negative); Protein,Urine 100 MG/DL; RBC,Urine 7 /HPF (0-4); Squamous Epithelial Cell,Urine Occasional /HPF (0-10); Urine Color Yellow (Yellow); Urine Specific Gravity 1.018 (1.001-1.035); WBC,Urine 3 /HPF (0-6)
[2020-02-13] MEDS ORDERED: SODIUM BICARBONATE 50 MEQ/50 ML VIAL IV ONE (21:08)
[2020-02-13] MEDS ORDERED: VANCOMYCIN INJ 1,500 MG in SODIUM CHLORIDE 0.9% 500 ML IV ONE (22:00)
[2020-02-13] MEDS: SODIUM BICARB INJ 50 MEQ in SODIUM CHLORIDE 0.45% 1,000 ML IV SCH (22:00)
[2020-02-13] MEDS: INSULIN REGULAR 100 UNIT/ML SUBCUT SCH (23:10)
[2020-02-14] MEDS: metroNIDAZOLE INJ 500 MG in PREMIX 1 EACH IV SCH ×4 (04:14→20:25)
[2020-02-14] MEDS: CIPROFLOXACIN INJ 400 MG in PREMIX 1 EACH IV SCH ×2 (04:44→18:25)
[2020-02-14 06:56] LABS: Basophils % 0.1 % (0.0-0.8); Eosinophils % 0.1 % (0.00-10.9); Hemoglobin 9.2 GM/DL (14.0-18.0); Immature Granulocytes % 0.3 %; Immature Granulocytes Absolute 0.02 #; Lymphocytes # 0.8 10*3/uL (1.4-4.0); Lymphocytes % 11.1 % (21.2-54.2); Mean Corpuscular HGB Conc 32.9 GM/DL (32-36); Mean Corpuscular Volume 94.6 FL (87-102); Mean Platelet Volume 9.5 FL (9.6-12.0); Monocytes % 7.6 % (1.7-12.7); NRBC # 0.03 10*3/uL; Neutrophils % 80.8 % (38.7-73.9); Platelet Count 146 T/CUMM (130-400); Red Blood Count 2.96 MC/CUMM (3.8-5.5); Red Cell Distribution Width 14.5 % (9.3-17.3)
[2020-02-14 07:13] LABS: Hypochromasia 1+; Platelet Estimate Adequate
[2020-02-14 07:49] LABS: Albumin 3.3 G/DL (3.4-5.0); Bilirubin,Total 0.9 MG/DL (0.2-1.0); Calcium 7.6 MG/DL (8.5-10.1); Osmolality,Calculated 266.2 MOS/KG (273-304); Total Protein 6.6 G/DL (6.4-8.3)
[2020-02-14] MEDS ORDERED: PANTOPRAZOLE 40 MG TABLET PO SCH (09:00)
[2020-02-14] MEDS: INSULIN REGULAR 100 UNIT/ML SUBCUT SCH ×4 (11:15→20:38)
[2020-02-14] MEDS: PANTOPRAZOLE 40 MG TABLET PO SCH ×2 (11:30→20:24)
[2020-02-14] MEDS ORDERED: ENOXAPARIN 30 MG/0.3 ML SYRINGE SUBCUT SCH (11:30)
[2020-02-14] MEDS: FOLIC ACID 1 MG TABLET PO SCH (11:30)
[2020-02-14] MEDS: LACTULOSE 20 GM/30 ML UDCUP PO SCH ×2 (11:30→20:24)
[2020-02-14 14:52] LABS: Hepatitis B Core IgM Quant 0.14 Index; Hepatitis B Surface Ag Quant 0.12 Index; Hepatitis B Surface Ag Result Negative (Negative); Hepatitis C Virus Ab Quant < 0.02 Index; Hepatitis C Virus Ab Result Negative (Negative)
[2020-02-14] MEDS: SODIUM BICARB INJ 50 MEQ in SODIUM CHLORIDE 0.45% 1,000 ML IV SCH (15:38)
[2020-02-14] MEDS ORDERED: VANCOMYCIN INJ 1,000 MG in SODIUM CHLORIDE 0.9% 250 ML IV SCH (17:00)
[2020-02-15] MEDS: metroNIDAZOLE INJ 500 MG in PREMIX 1 EACH IV SCH ×2 (03:11→08:50)
[2020-02-15] MEDS: SODIUM BICARB INJ 50 MEQ in SODIUM CHLORIDE 0.45% 1,000 ML IV SCH (03:11)
[2020-02-15] MEDS: CIPROFLOXACIN INJ 400 MG in PREMIX 1 EACH IV SCH (05:25)
[2020-02-15 05:38] LABS: Basophils % 0.5 % (0.0-0.8); Eosinophils # 0.1 10*3/uL (0.0-0.87); Eosinophils % 1.6 % (0.00-10.9); Hematocrit 26.3 VOL% (42.0-52.0); Hemoglobin 9.2 GM/DL (14.0-18.0); Immature Granulocytes % 0.7 %; Immature Granulocytes Absolute 0.03 #; Lymphocytes # 0.9 10*3/uL (1.4-4.0); Lymphocytes % 21.9 % (21.2-54.2); Mean Corpuscular Volume 89.2 FL (87-102); Mean Platelet Volume 10.2 FL (9.6-12.0); NRBC # 0.03 10*3/uL; Neutrophils % 65.3 % (38.7-73.9); Platelet Count 122 T/CUMM (130-400); Red Blood Count 2.95 MC/CUMM (3.8-5.5); Red Cell Distribution Width 14.6 % (9.3-17.3); White Blood Count 4.3 T/CUMM (4-12)
[2020-02-15 06:06] LABS: Albumin 3.1 G/DL (3.4-5.0); Bilirubin,Total 0.9 MG/DL (0.2-1.0); Calcium 8.4 MG/DL (8.5-10.1); Total Protein 6.1 G/DL (6.4-8.3)
[2020-02-15] MEDS: INSULIN REGULAR 100 UNIT/ML SUBCUT SCH (08:42)
[2020-02-15] MEDS: LACTULOSE 20 GM/30 ML UDCUP PO SCH (08:48)
[2020-02-15] MEDS: FOLIC ACID 1 MG TABLET PO SCH (08:48)
[2020-02-15] MEDS: PANTOPRAZOLE 40 MG TABLET PO SCH (08:48)
[2020-02-15 11:35] VITALS: BP 107/68
[2020-02-15 11:35] LABS: Platelet Estimate Normal; Stomatocytes Few; Target Cells Few
== END 2020-02-15 13:35 | disposition home or self-care (01) | DRG 872 ==
LOC: N.ED 16:44 → N.EDINP 20:51 → N.3E 22:13
PROVIDERS: ADMIT Internal Medicine; ATTEND Internal Medicine

== ENCOUNTER 2021-05-03 05:31 | Observation (INO) ==
[2021-05-03] MEDS ORDERED: ALUM/MAG/SIMETH/LIDO VISC 1:1 30 ML BOTTLE PO STA ×2 (05:45→06:31)
[2021-05-03] MEDS ORDERED: ONDANSETRON 4 MG/2 ML VIAL IV STA ×2 (05:45→07:32)
[2021-05-03] MEDS ORDERED: MORPHINE 2 MG/1 ML SYRINGE IV STA ×2 (05:45→07:33)
[2021-05-03] MEDS ORDERED: ASPIRIN 325 MG TABLET PO STA (05:45)
[2021-05-03 06:09] LABS: Basophils % 0.1 % (0.0-0.8); Eosinophils % 0.1 % (0.00-10.9); Hematocrit 34.8 VOL% (42.0-52.0); Hemoglobin 11.4 GM/DL (14.0-18.0); Immature Granulocytes % 0.9 %; Immature Granulocytes Absolute 0.09 #; Lymphocytes # 0.5 10*3/uL (1.4-4.0); Lymphocytes % 4.8 % (21.2-54.2); Mean Corpuscular HGB Conc 32.8 GM/DL (32-36); Mean Platelet Volume 10.4 FL (9.6-12.0); Monocytes % 4.6 % (1.7-12.7); Neutrophils % 89.5 % (38.7-73.9); Platelet Count 151 T/CUMM (130-400); Red Blood Count 3.55 MC/CUMM (3.8-5.5); Red Cell Distribution Width 14.7 % (9.3-17.3); White Blood Count 9.8 T/CUMM (4-12)
[2021-05-03 06:16] LABS: PT Patient Result 11.1 SECS (10.5-12.0)
[2021-05-03 06:26] LABS: Albumin 4.1 G/DL (3.4-5.0); Bilirubin,Total 1.1 MG/DL (0.20-1.00); Calcium 9.5 MG/DL (8.5-10.1); Osmolality,Calculated 246.3 MOS/KG (273-304); Potassium 5.2 MMOL/L (3.5-5.1); Total Protein 7.5 G/DL (6.4-8.2)
[2021-05-03 06:27] LABS: Band Neutrophils 3 % (0-10); Hypochromasia Slight; Lymphocytes 5 % (20-55); Microcytosis Slight; Nucleated Red Blood Cells 2 (0-5); Platelet Estimate Adequate; Segmented Neutrophils 90 % (50-85); Total Cells Counted 100
[2021-05-03] MEDS ORDERED: MORPHINE 2 MG/1 ML SYRINGE IV PRN (08:55)
[2021-05-03] MEDS ORDERED: ONDANSETRON 4 MG/2 ML VIAL IV PRN (08:55)
[2021-05-03] MEDS ORDERED: MAGNESIUM SULF RIDER 4 GM/100 ML PREMIX IV ONE (09:12)
[2021-05-03 10:30] LABS: Hepatitis B Core IgM Quant 0.08 Index; Hepatitis B Surface Ag Quant 0.46 Index; Hepatitis B Surface Ag Result Non-Reactive (NonReactive); Hepatitis C Virus Ab Quant < 0.02 Index; Hepatitis C Virus Ab Result Non-Reactive (NonReactive)
[2021-05-03] MEDS: PANTOPRAZOLE 40 MG VIAL IV SCH (11:31)
[2021-05-03] MEDS: ENOXAPARIN 40 MG/0.4 ML SYRINGE SUBCUT SCH (11:31)
[2021-05-03] MEDS: DEXTROSE 5% NACL 0.9% 1,000 ML IV SCH ×3 (11:31→23:35)
[2021-05-03] MEDS: ALBUTEROL/IPRATROPIUM 3 ML NEB RESP TX SCH ×2 (13:20→19:20)
[2021-05-03] MEDS: METOPROLOL SUCCINATE XL 50 MG TABLET PO SCH (14:35)
[2021-05-03] MEDS: SODIUM BICARBONATE 650 MG TABLET PO SCH (20:19)
[2021-05-03] MEDS: GABAPENTIN 100 MG CAPSULE PO SCH ×2 (20:19→20:39)
[2021-05-04] MEDS: DEXTROSE 5% NACL 0.9% 1,000 ML IV SCH ×3 (01:00→19:20)
[2021-05-04] MEDS: ALBUTEROL/IPRATROPIUM 3 ML NEB RESP TX SCH ×4 (01:19→19:57)
[2021-05-04 05:55] LABS: Hematocrit 28.3 VOL% (42.0-52.0); Hemoglobin 10.1 GM/DL (14.0-18.0); Immature Granulocytes % 0.7 %; Immature Granulocytes Absolute 0.04 #; Lymphocytes # 0.9 10*3/uL (1.4-4.0); Mean Corpuscular HGB Conc 35.7 GM/DL (32-36); Mean Corpuscular Volume 92.2 FL (87-102); Mean Platelet Volume 11.4 FL (9.6-12.0); Monocytes % 3.8 % (1.7-12.7); Neutrophils % 80.5 % (38.7-73.9); Red Blood Count 3.07 MC/CUMM (3.8-5.5); Red Cell Distribution Width 14.9 % (9.3-17.3)
[2021-05-04 06:01] LABS: Platelet Count 105 T/CUMM (130-400); White Blood Count 6.1 T/CUMM (4-12)
[2021-05-04 06:22] LABS: Albumin 3.4 G/DL (3.4-5.0); Bilirubin,Total 0.7 MG/DL (0.20-1.00); Calcium 8.5 MG/DL (8.5-10.1); Osmolality,Calculated 259.7 MOS/KG (273-304); Potassium 3.9 MMOL/L (3.5-5.1); Risk Ratio 2.54; Thyroid Stimulating Hormone 1.08 uIU/ml (0.358-3.74); Total Protein 6.6 G/DL (6.4-8.2); VLDL Cholesterol 60.6 MG/DL
[2021-05-04 06:34] LABS: Band Neutrophils 3 % (0-10); Lymphocytes 13 % (20-55); Platelet Estimate Normal; Segmented Neutrophils 84 % (50-85); Total Cells Counted 100
[2021-05-04] MEDS: PANTOPRAZOLE 40 MG VIAL IV SCH (09:00)
[2021-05-04] MEDS: METOPROLOL SUCCINATE XL 50 MG TABLET PO SCH (09:00)
[2021-05-04] MEDS: GABAPENTIN 100 MG CAPSULE PO SCH ×3 (09:00→21:27)
[2021-05-04] MEDS: ENOXAPARIN 40 MG/0.4 ML SYRINGE SUBCUT SCH (09:00)
[2021-05-04] MEDS: SODIUM BICARBONATE 650 MG TABLET PO SCH ×3 (09:01→21:27)
[2021-05-04 12:17] LABS: Bacteria,Urine Occasional /HPF (Few); Bilirubin,Urine Negative (Negative); Blood, Urine Small mg/dL (Negative); Glucose,Urine (UA) Negative (Negative); Ketones,Urine 5 mg/dL (Negative); Mucus,Urine Occasional /LPF (Occasional); Nitrite,Urine Negative (Negative); Protein,Urine Negative; Urine Appearance CLEAR (Clear); Urine Color Yellow (Yellow); Urine Specific Gravity 1.004 (1.001-1.035); Urine Urobilinogen < 2.0 EU/DL (0.2-1.0)
[2021-05-05] MEDS: ALBUTEROL/IPRATROPIUM 3 ML NEB RESP TX SCH ×3 (00:33→14:39)
[2021-05-05] MEDS: DEXTROSE 5% NACL 0.9% 1,000 ML IV SCH ×3 (01:24→18:21)
[2021-05-05 05:46] LABS: Basophils % 0.2 % (0.0-0.8); Eosinophils % 0.5 % (0.00-10.9); Hematocrit 24.3 VOL% (42.0-52.0); Hemoglobin 8.3 GM/DL (14.0-18.0); Immature Granulocytes % 0.5 %; Immature Granulocytes Absolute 0.02 #; Lymphocytes # 1.1 10*3/uL (1.4-4.0); Lymphocytes % 26.6 % (21.2-54.2); Mean Corpuscular HGB Conc 34.2 GM/DL (32-36); Mean Corpuscular Volume 94.9 FL (87-102); Mean Platelet Volume 11.4 FL (9.6-12.0); Monocytes % 7.7 % (1.7-12.7); Neutrophils % 64.5 % (38.7-73.9); Red Blood Count 2.56 MC/CUMM (3.8-5.5); Red Cell Distribution Width 15.8 % (9.3-17.3)
[2021-05-05 06:03] LABS: Platelet Count 85 T/CUMM (130-400)
[2021-05-05 06:05] LABS: Albumin 2.8 G/DL (3.4-5.0); Bilirubin,Total 0.8 MG/DL (0.20-1.00); Calcium 8.1 MG/DL (8.5-10.1); Osmolality,Calculated 274.7 MOS/KG (273-304); Potassium 3.1 MMOL/L (3.5-5.1); Total Protein 5.8 G/DL (6.4-8.2)
[2021-05-05 06:15] LABS: Anisocytosis 1+; Hypochromasia 1+; Microcytosis 1+; Target Cells Slight
[2021-05-05 06:16] LABS: Platelet Estimate Decreased
[2021-05-05] MEDS ORDERED: POTASSIUM CHLORIDE RIDER 20 MEQ/100 ML PREMIX IV PRN (07:47)
[2021-05-05] MEDS: ENOXAPARIN 40 MG/0.4 ML SYRINGE SUBCUT SCH (09:17)
[2021-05-05] MEDS: PANTOPRAZOLE 40 MG VIAL IV SCH (09:24)
[2021-05-05] MEDS: GABAPENTIN 100 MG CAPSULE PO SCH ×2 (09:25→17:26)
[2021-05-05] MEDS: SODIUM BICARBONATE 650 MG TABLET PO SCH ×2 (09:25→17:27)
[2021-05-05] MEDS: METOPROLOL SUCCINATE XL 50 MG TABLET PO SCH (09:26)
[2021-05-05 11:46] VITALS: BP 107/68
== END 2021-05-05 17:10 | disposition home or self-care (01) ==
LOC: N.ED 05:31 → N.TELEN 05:31
PROVIDERS: ADMIT Hospitalist; ATTEND Hospitalist